=== PATIENT | female | born 1955 | race Hispanic/Latino ===

== ENCOUNTER 2017-06-28 16:58 | Emergency (ER) | payer OTHER, SELFPAY ==
[2017-06-28 17:34] LABS: BASOPHILS % (AUTO) 0.8 % (0.0-5.0); EOSINOPHILS % (AUTO) 1.8 % (0.0-8.0); HEMATOCRIT 43.3 % (36-48); LYMPHOCYTES % (AUTO) 29.8 % (21.0-51.0); MEAN CORPUSCULAR HEMOGLOBIN 31.7 pg (27.0-33.0); MEAN CORPUSCULAR VOLUME 90.7 fL (79-99); MONOCYTES % (AUTO) 7.6 % (3.0-13.0); NUCLEATED RED BLOOD CELLS 0.1 % (0.0-0.19); PLATELET COUNT (AUTO) 309 K/uL (130-400); RED BLOOD CELL COUNT(AUTO) 4.77 MIL/uL (4.00-5.50); RED CELL DISTRIBUTION WIDTH 13.2 % (11.0-15.5); WHITE BLOOD COUNT (AUTO) 7.7 K/uL (4.8-10.8)
[2017-06-28 17:52] LABS: INR 0.97 (0.85-1.15); PARTIAL THROMBOPLASTIN TIME 25.9 SEC (26.3-35.5); PROTHROMBIN TIME 10.2 SEC (9.6-11.6)
[2017-06-28 18:01] LABS: CREATININE 0.6 mg/dL (0.5-1.5); POTASSIUM 4.5 mmol/L (3.5-5.1)
[2017-06-28 18:19] LABS: ALBUMIN 3.9 g/dL (3.5-5.0); BILIRUBIN,TOTAL 0.5 mg/dL (0.2-1.0); CREATINE KINASE MB 0.6 ng/mL (0.5-3.6); TOTAL PROTEIN, SERUM 7.4 g/dL (6.0-8.3)
[2017-06-28 18:49] LABS: APPEARANCE,URINE Clear (CLEAR); BILIRUBIN,URINE Negative (NEGATIVE); COLOR,URINE Yellow (YELLOW); GLUCOSE, URINE (UA) Negative (NEGATIVE); KETONES,URINE Negative (NEGATIVE); LEUKOCYTE ESTERASE ,URINE Moderate (NEGATIVE); NITRATE,URINE Negative (NEGATIVE); OCCULT BLOOD,URINE Negative (NEGATIVE); PROTEIN,URINE Negative (NEGATIVE); UROBILINOGEN,URINE 0.2 mg/dL (0.2-1.0)
[2017-06-28 18:55] LABS: AMPHET/METH SCREEN,URINE NEGATIVE (NEGATIVE); BARBITURATE SCREEN, URINE NEGATIVE (NEGATIVE); BENZODIAZEPINES SCREEN,URINE NEGATIVE (NEGATIVE); CANNABINOID SCREEN,URINE NEGATIVE (NEGATIVE); COCAINE SCREEN,URINE NEGATIVE (NEGATIVE); OPIATE SCREEN,URINE NEGATIVE (NEGATIVE); PHENCYCLIDINE SCREEN,URINE NEGATIVE (NEGATIVE)
[2017-06-28 18:57] LABS: RBC,URINE 0-1 /HPF (0-1)
[2017-06-28 18:58] LABS: SQUAMOUS EPITHELIAL CELL,UR Few /LPF (0-2)
[2017-06-28 18:59] LABS: BACTERIA,URINE Rare /HPF (None Seen); YEAST,URINE BUDDING Few /HPF (None Seen)
== END 2017-06-28 19:17 | disposition home or self-care (01) ==
LOC: EDH 16:58
DX: I10 Essential (primary) hypertension (principal); E11.65 Type 2 diabetes mellitus with hyperglycemia; H66.93 Otitis media, unspecified, bilateral; K59.00 Constipation, unspecified; R79.1 Abnormal coagulation profile; Z79.82 Long term (current) use of aspirin; Z79.899 Other long term (current) drug therapy
CPT/HCPCS: 36415; 71045; 80053; 80305; 81001; 82553; 84484; 85025; 85610; 85730; 93005

== ENCOUNTER 2018-07-10 23:53 | Emergency (ER) | payer OTHER ==
[2018-07-11] MEDS ORDERED: ACETAMINOPHEN 325 MG TAB ONE (00:12)
[2018-07-11 00:47] LABS: BILIRUBIN,URINE Negative (NEGATIVE); COLOR,URINE Yellow (YELLOW); GLUCOSE, URINE (UA) Negative (NEGATIVE); KETONES,URINE Negative (NEGATIVE); LEUKOCYTE ESTERASE ,URINE Large (NEGATIVE); NITRATE,URINE Positive (NEGATIVE); OCCULT BLOOD,URINE Moderate (NEGATIVE); PH,URINE 5.5 (5.0-8.0); PROTEIN,URINE Negative (NEGATIVE)
[2018-07-11 00:48] LABS: APPEARANCE,URINE CLEAR (CLEAR)
[2018-07-11 00:53] LABS: BACTERIA,URINE Many /HPF (None Seen); MUCUS,URINE Few LPF (None Seen); SQUAMOUS EPITHELIAL CELL,UR Rare /HPF (0-2)
[2018-07-11 01:08] LABS: BASOPHILS % (AUTO) 0.4 % (0.0-5.0); EOSINOPHILS % (AUTO) 0.8 % (0.0-8.0); HEMATOCRIT 39.4 % (36-48); LYMPHOCYTES % (AUTO) 5.6 % (21.0-51.0); MEAN CORPUSCULAR HEMOGLOBIN 31.6 pg (27.0-33.0); MEAN CORPUSCULAR HGB CONC 34.6 g/dL (32.0-36.0); MEAN CORPUSCULAR VOLUME 91.3 fL (79-99); MONOCYTES % (AUTO) 7.9 % (3.0-13.0); NEUTROPHILS % (AUTO) 85.3 % (40.0-77.0); PLATELET COUNT (AUTO) 280 K/uL (130-400); RED BLOOD CELL COUNT(AUTO) 4.31 MIL/uL (4.00-5.50); RED CELL DISTRIBUTION WIDTH 12.7 % (11.0-15.5); WHITE BLOOD COUNT (AUTO) 11.1 K/uL (4.8-10.8)
[2018-07-11 01:17] LABS: CREATININE 0.7 mg/dL (0.5-1.5); POTASSIUM 3.1 mmol/L (3.5-5.1)
[2018-07-11] MEDS ORDERED: CEFTRIAXONE SODIUM 1 GM ONE (01:17)
[2018-07-11 01:22] LABS: ALBUMIN 3.4 g/dL (3.5-5.0); BILIRUBIN,TOTAL 0.5 mg/dL (0.2-1.0); TOTAL PROTEIN, SERUM 7.3 g/dL (6.0-8.3)
[2018-07-11] MEDS ORDERED: ONDANSETRON HCL 4 MG/2 ML VIAL ONE (01:23)
[2018-07-11] MEDS ORDERED: POTASSIUM CHLORIDE 20 MEQ ERTAB PO ONE (02:06)
== END 2018-07-11 02:56 | disposition home or self-care (01) ==
LOC: EDH 23:53
DX: N30.00 Acute cystitis without hematuria (principal); M79.10 Myalgia, unspecified site; R50.81 Fever presenting with conditions classified elsewhere; E11.9 Type 2 diabetes mellitus without complications; I10 Essential (primary) hypertension; E78.5 Hyperlipidemia, unspecified; Z86.73 Personal history of transient ischemic attack (TIA), and cerebral infarction without residual deficits
CPT/HCPCS: 36415; 71046; 80053; 81001; 82550; 84484; 85025; 87804 ×2; 93005; 96374; 96375; 99284; A4218; J0696; J2405

== ENCOUNTER → 2020-11-25 | Outpatient (CLI) | payer OTHER | END | disposition home or self-care (01) | LOC: CANPRECLI → RAH 08:31 | PROVIDERS: ATTEND Internal Medicine | DX: I08.1 Rheumatic disorders of both mitral and tricuspid valves (principal); R55 Syncope and collapse; I10 Essential (primary) hypertension; E11.9 Type 2 diabetes mellitus without complications; E78.5 Hyperlipidemia, unspecified; E66.9 Obesity, unspecified | CPT/HCPCS: 93306; 93356 ==

== ENCOUNTER 2022-12-13 01:40 | Inpatient (IN) | payer OTHER ==
[~2022-12-13] VITALS: Ht 162.6 cm; Wt 90.7 kg
[2022-12-13 04:14] LABS: BASOPHILS # (AUTO) 0.11 K/uL (0.00-0.20); BASOPHILS % (AUTO) 0.8 % (0.0-5.0); EOSINOPHILS # (AUTO) 0.13 K/uL (0.00-0.70); HEMATOCRIT 39.7 % (36-48); IMMATURE GRANULOCYTE ABSOLUTE 0.07 K/uL (0-1); LYMPHOCYTES # (AUTO) 2.2 K/uL (1.0-4.8); LYMPHOCYTES % (AUTO) 16.4 % (21.0-51.0); MEAN CORPUSCULAR HEMOGLOBIN 30.2 pg (27.0-33.0); MEAN CORPUSCULAR VOLUME 88.8 fL (79-99); MONOCYTES # (AUTO) 0.9 K/uL (0.1-1.0); MONOCYTES % (AUTO) 7.1 % (3.0-13.0); NEUTROPHILS # (AUTO) 9.8 K/uL (1.8-7.7); NEUTROPHILS % (AUTO) 74.2 % (40.0-77.0); PLATELET COUNT (AUTO) 455 K/uL (130-400); RED BLOOD CELL COUNT(AUTO) 4.47 MIL/uL (4.00-5.50); RED CELL DISTRIBUTION WIDTH 12.5 % (11.0-15.5); WHITE BLOOD COUNT (AUTO) 13.2 K/uL (4.8-10.8)
[2022-12-13 04:29] LABS: CREATININE 0.9 mg/dL (0.5-1.5); POTASSIUM 3.2 mmol/L (3.5-5.1)
[2022-12-13 04:40] LABS: ALBUMIN 3.4 g/dL (3.5-5.0); BILIRUBIN,TOTAL 0.3 mg/dL (0.2-1.0); TOTAL PROTEIN, SERUM 7.3 g/dL (6.0-8.3)
[2022-12-13 04:55] LABS: APPEARANCE,URINE TURBID (CLEAR); BILIRUBIN,URINE NEGATIVE (NEGATIVE); COLOR,URINE RED (YELLOW); GLUCOSE, URINE (UA) 100 mg/dL (NEGATIVE); KETONES,URINE 5 mg/dL (NEGATIVE); LEUKOCYTE ESTERASE ,URINE TRACE Leu/uL (NEGATIVE); NITRATE,URINE POSITIVE (NEGATIVE); OCCULT BLOOD,URINE LARGE (NEGATIVE); PROTEIN,URINE >=300 mg/dL (NEGATIVE)
[2022-12-13 04:56] LABS: ADD UA MICROSCOPIC YES; RBC,URINE TNTC /HPF (0-1)
[2022-12-13 04:57] LABS: BACTERIA,URINE Few /HPF (None Seen)
[2022-12-13] MEDS: 0.9% NACL 500ML IV.SOLN 500 ML IV SCH ×3 (05:20→09:23)
[2022-12-13] MEDS ORDERED: IOHEXOL 350 MG/ML 100ML INFUS..BTL IV ONE (05:42)
[2022-12-13] MEDS ORDERED: KCL 20 MEQ ERTAB PO ONE (07:00)
[2022-12-13] MEDS: CEFTRIAXONE 1G VIAL IVPB SCH (07:07)
[2022-12-13] MEDS ORDERED: FISH1CAP27 PO (07:26)
[2022-12-13] MEDS ORDERED: METF-444 PO (07:26)
[2022-12-13] MEDS ORDERED: LOVA40TA2 PO (07:26)
[2022-12-13] MEDS ORDERED: HYDR25TA PO (07:26)
[2022-12-13] MEDS ORDERED: CLOP75TA32 PO (07:26)
[2022-12-13] MEDS ORDERED: AMLO-258 PO (07:26)
[2022-12-13] MEDS ORDERED: OLME20TA22 PO (07:26)
[2022-12-13] MEDS: HYDROCHLOROTHIAZIDE 25 MG TABLET PO SCH (08:09)
[2022-12-13] MEDS: METFORMIN HCL 500 MG TABLET PO SCH ×2 (08:44→21:00)
[2022-12-13] MEDS ORDERED: NON-FORMULARY MEDICATION 1 EACH (Amlodipine Besylate 10 MG) PO SCH (09:00)
[2022-12-13] MEDS: AMLODIPINE 5 MG TAB PO SCH (09:00)
[2022-12-13] MEDS: LOSARTAN 100 MG TABLET PO SCH (09:00)
[2022-12-13] MEDS ORDERED: CLOPIDOGREL 75MG TAB PO SCH (09:00)
[2022-12-13] MEDS ORDERED: NON-FORMULARY MEDICATION 1 EACH (Olmesartan Medoxomil 20 MG) PO SCH (09:00)
[2022-12-13] MEDS ORDERED: FISH OIL 1000 MG/CAP PO SCH (17:00)
[2022-12-13] MEDS ORDERED: NON-FORMULARY MEDICATION 1 EACH (Lovastatin 40 MG) PO SCH (17:00)
[2022-12-13 19:40] VITALS: PULSE 87; RESP 19; O2SAT 96
[2022-12-13] MEDS ORDERED: CHOL200013 PO (19:51)
[2022-12-13] MEDS ORDERED: GLUCAGON 1MG KIT 1 MG ML IM PRN (20:00)
[2022-12-13] MEDS: ACETAMINOPHEN 325 MG TAB PO PRN (20:23)
[2022-12-13] MEDS: ATORVASTATIN 10 MG TABLET PO SCH (21:21)
[2022-12-13 22:40] VITALS: BP 120/62; PULSE 85; RESP 18
[2022-12-13] MEDS ORDERED: HYALURONIC ACID PO (23:29)
[2022-12-14] VITALS (7 sets, daily range): BP systolic 97–127; BP diastolic 43–65; PULSE 82–93; RESP 18–20; O2SAT 96–98
[2022-12-14] MEDS: ACETAMINOPHEN 325 MG TAB PO PRN (03:10)
[2022-12-14 05:22] LABS: INR 0.94 (0.85-1.15); PROTHROMBIN TIME 10.9 SEC (9.6-11.6)
[2022-12-14 05:23] LABS: PARTIAL THROMBOPLASTIN TIME 24.7 SEC (26.3-35.5)
[2022-12-14 05:24] LABS: BASOPHILS % (AUTO) 0.8 % (0.0-5.0); EOSINOPHILS # (AUTO) 0.08 K/uL (0.00-0.70); EOSINOPHILS % (AUTO) 0.6 % (0.0-8.0); HEMATOCRIT 26.3 % (36-48); IMMATURE GRANULOCYTE ABSOLUTE 0.11 K/uL (0-1); LYMPHOCYTES # (AUTO) 3.1 K/uL (1.0-4.8); MEAN CORPUSCULAR HEMOGLOBIN 30.1 pg (27.0-33.0); MEAN CORPUSCULAR HGB CONC 33.5 g/dL (32.0-36.0); MEAN CORPUSCULAR VOLUME 90.1 fL (79-99); MONOCYTES % (AUTO) 7.1 % (3.0-13.0); NEUTROPHILS % (AUTO) 67.7 % (40.0-77.0); PLATELET COUNT (AUTO) 450 K/uL (130-400); RED BLOOD CELL COUNT(AUTO) 2.92 MIL/uL (4.00-5.50); RED CELL DISTRIBUTION WIDTH 12.8 % (11.0-15.5); WHITE BLOOD COUNT (AUTO) 13.3 K/uL (4.8-10.8)
[2022-12-14 05:43] LABS: ALBUMIN 2.8 g/dL (3.5-5.0); BILIRUBIN,TOTAL 0.3 mg/dL (0.2-1.0); POTASSIUM 3.4 mmol/L (3.5-5.1); TOTAL PROTEIN, SERUM 5.8 g/dL (6.0-8.3)
[2022-12-14] MEDS: CEFTRIAXONE 1G VIAL IVPB SCH (07:16)
[2022-12-14] MEDS: AMLODIPINE 5 MG TAB PO SCH (09:00)
[2022-12-14] MEDS: Cholecalciferol (Vitamin D3) 50 MCG PO SCH (09:00)
[2022-12-14] MEDS: LOSARTAN 100 MG TABLET PO SCH (09:00)
[2022-12-14] MEDS: METFORMIN HCL 500 MG TABLET PO SCH ×2 (09:39→21:04)
[2022-12-14] MEDS: HYDROCHLOROTHIAZIDE 25 MG TABLET PO SCH (09:40)
[2022-12-14] MEDS: FISH OIL 1000 MG/CAP PO SCH (17:02)
[2022-12-14] MEDS: ATORVASTATIN 10 MG TABLET PO SCH (21:04)
[2022-12-15] VITALS (20 sets, daily range): BP systolic 116–159; BP diastolic 33–78; PULSE 66–92; RESP 15–20; O2SAT 97–98
[2022-12-15 05:10] LABS: BASOPHILS # (AUTO) 0.11 K/uL (0.00-0.20); BASOPHILS % (AUTO) 0.9 % (0.0-5.0); EOSINOPHILS # (AUTO) 0.09 K/uL (0.00-0.70); EOSINOPHILS % (AUTO) 0.7 % (0.0-8.0); IMMATURE GRANULOCYTE ABSOLUTE 0.15 K/uL (0-1); LYMPHOCYTES # (AUTO) 3.3 K/uL (1.0-4.8); LYMPHOCYTES % (AUTO) 25.9 % (21.0-51.0); MEAN CORPUSCULAR HEMOGLOBIN 30.6 pg (27.0-33.0); MONOCYTES # (AUTO) 0.9 K/uL (0.1-1.0); NEUTROPHILS # (AUTO) 8.2 K/uL (1.8-7.7); NEUTROPHILS % (AUTO) 64.3 % (40.0-77.0); PLATELET COUNT (AUTO) 337 K/uL (130-400); RED BLOOD CELL COUNT(AUTO) 2.19 MIL/uL (4.00-5.50); RED CELL DISTRIBUTION WIDTH 12.7 % (11.0-15.5); WHITE BLOOD COUNT (AUTO) 12.8 K/uL (4.8-10.8)
[2022-12-15 05:18] LABS: CREATININE 0.8 mg/dL (0.5-1.5); POTASSIUM 3.5 mmol/L (3.5-5.1)
[2022-12-15 05:32] LABS: HEMATOCRIT 19.7 % (36-48)
[2022-12-15] MEDS: CEFTRIAXONE 1G VIAL IVPB SCH (06:11)
[2022-12-15] MEDS: METFORMIN HCL 500 MG TABLET PO SCH ×2 (09:00→22:55)
[2022-12-15] MEDS: LOSARTAN 100 MG TABLET PO SCH (09:00)
[2022-12-15] MEDS: HYDROCHLOROTHIAZIDE 25 MG TABLET PO SCH (09:00)
[2022-12-15] MEDS: AMLODIPINE 5 MG TAB PO SCH (09:00)
[2022-12-15] MEDS: Cholecalciferol (Vitamin D3) 50 MCG PO SCH (09:00)
[2022-12-15 15:35] LABS: HEMATOCRIT 24.9 % (36-48)
[2022-12-15] MEDS: FISH OIL 1000 MG/CAP PO SCH (17:00)
[2022-12-15] MEDS ORDERED: IOHEXOL-350 75 ML VIAL IV ONE (19:36)
[2022-12-15] MEDS ORDERED: KETAMINE 50MG/ML SYRINGE 50 MG/ML DISP.SYRIN ONE (19:55)
[2022-12-15] MEDS ORDERED: LIDOCAINE PF 100MG/5ML (2%) SYRINGE 5ML ONE (19:57)
[2022-12-15] MEDS ORDERED: ROCURONIUM 10MG/1ML SYR 10 MG/ML ML ONE (19:58)
[2022-12-15] MEDS ORDERED: PROPOFOL 10 MG/ML 20ML VIAL IV ONE (19:58)
[2022-12-15] MEDS ORDERED: FENTANYL CITRATE PF 50 MCG/1 ML 2ML VIAL ONE (20:00)
[2022-12-15] MEDS ORDERED: ALBUMIN (HUMAN) 5% 250 ML IV ONE (20:29)
[2022-12-15] MEDS ORDERED: FUROSEMIDE 40MG VIAL ONE (20:36)
[2022-12-15] MEDS ORDERED: IOHEXOL-350 50ML VIAL IV ONE ×2 (20:48→21:00)
[2022-12-15] MEDS ORDERED: AMINOCAPROIC ACID 5,000MG VIAL ONE ×4 (21:04→22:17)
[2022-12-15] MEDS ORDERED: GLYCOPYRROLATE 1 MG/5 ML SYRINGE ONE (21:11)
[2022-12-15] MEDS ORDERED: NEOSTIGMINE 5MG/5ML SYR IV ONE (21:11)
[2022-12-15 22:16] LABS: BASOPHILS # (AUTO) 0.09 K/uL (0.00-0.20); BASOPHILS % (AUTO) 0.7 % (0.0-5.0); EOSINOPHILS # (AUTO) 0.05 K/uL (0.00-0.70); EOSINOPHILS % (AUTO) 0.4 % (0.0-8.0); HEMATOCRIT 35.1 % (36-48); IMMATURE GRANULOCYTE ABSOLUTE 0.28 K/uL (0-1); LYMPHOCYTES # (AUTO) 2.6 K/uL (1.0-4.8); LYMPHOCYTES % (AUTO) 21.6 % (21.0-51.0); MEAN CORPUSCULAR HEMOGLOBIN 30.9 pg (27.0-33.0); MEAN CORPUSCULAR HGB CONC 33.9 g/dL (32.0-36.0); MEAN CORPUSCULAR VOLUME 91.2 fL (79-99); MONOCYTES # (AUTO) 0.9 K/uL (0.1-1.0); MONOCYTES % (AUTO) 7.7 % (3.0-13.0); NEUTROPHILS # (AUTO) 8.2 K/uL (1.8-7.7); NEUTROPHILS % (AUTO) 67.3 % (40.0-77.0); NUCLEATED RED BLOOD CELLS 0.7 % (0.0-0.19); PLATELET COUNT (AUTO) 258 K/uL (130-400); RED BLOOD CELL COUNT(AUTO) 3.85 MIL/uL (4.00-5.50); RED CELL DISTRIBUTION WIDTH 13.6 % (11.0-15.5); WHITE BLOOD COUNT (AUTO) 12.2 K/uL (4.8-10.8)
[2022-12-15 22:30] LABS: CREATININE 0.7 mg/dL (0.5-1.5); POTASSIUM 3.5 mmol/L (3.5-5.1)
[2022-12-15 22:34] LABS: ALBUMIN 3.2 g/dL (3.5-5.0); BILIRUBIN,TOTAL 0.6 mg/dL (0.2-1.0); TOTAL PROTEIN, SERUM 6.1 g/dL (6.0-8.3)
[2022-12-15] MEDS: ATORVASTATIN 10 MG TABLET PO SCH (22:55)
[2022-12-15] MEDS ORDERED: LACTATED RINGERS 1000ML 1,000 ML IV SCH (23:00)
[2022-12-15] MEDS ORDERED: PHARMACY COMMUNICATION MISC SCH (23:00)
[2022-12-15] MEDS ORDERED: MEPERIDINE-PF 75 MG/ML SYG IVP PRN (23:00)
[2022-12-15] MEDS ORDERED: ONDANSETRON 4MG INJ IVP PRN (23:00)
[2022-12-15] MEDS ORDERED: ACETAMINOPHEN WITH CODEINE 1 TAB TAB PO PRN (23:00)
[2022-12-15] MEDS ORDERED: LACTATED RINGERS IV SCH (23:30)
[2022-12-15] MEDS ORDERED: AMINOCAPROIC ACID IV SCH (23:30)
[2022-12-16 04:00] VITALS: BP 150/71; PULSE 73; RESP 18
[2022-12-16] MEDS: CEFTRIAXONE 1G VIAL IVPB SCH (04:39)
[2022-12-16 04:48] LABS: BASOPHILS # (AUTO) 0.07 K/uL (0.00-0.20); BASOPHILS % (AUTO) 0.6 % (0.0-5.0); EOSINOPHILS # (AUTO) 0.02 K/uL (0.00-0.70); EOSINOPHILS % (AUTO) 0.2 % (0.0-8.0); HEMATOCRIT 31.2 % (36-48); IMMATURE GRANULOCYTE ABSOLUTE 0.15 K/uL (0-1); LYMPHOCYTES # (AUTO) 2.2 K/uL (1.0-4.8); LYMPHOCYTES % (AUTO) 17.4 % (21.0-51.0); MEAN CORPUSCULAR HEMOGLOBIN 30.1 pg (27.0-33.0); MEAN CORPUSCULAR HGB CONC 34.3 g/dL (32.0-36.0); MEAN CORPUSCULAR VOLUME 87.9 fL (79-99); MONOCYTES # (AUTO) 0.9 K/uL (0.1-1.0); MONOCYTES % (AUTO) 6.8 % (3.0-13.0); NEUTROPHILS # (AUTO) 9.2 K/uL (1.8-7.7); NEUTROPHILS % (AUTO) 73.8 % (40.0-77.0); NUCLEATED RED BLOOD CELLS 0.5 % (0.0-0.19); PLATELET COUNT (AUTO) 256 K/uL (130-400); RED BLOOD CELL COUNT(AUTO) 3.55 MIL/uL (4.00-5.50); RED CELL DISTRIBUTION WIDTH 13.2 % (11.0-15.5); WHITE BLOOD COUNT (AUTO) 12.4 K/uL (4.8-10.8)
[2022-12-16 05:08] LABS: ALBUMIN 2.8 g/dL (3.5-5.0); BILIRUBIN,TOTAL 0.6 mg/dL (0.2-1.0); CREATININE 0.7 mg/dL (0.5-1.5); POTASSIUM 3.1 mmol/L (3.5-5.1); TOTAL PROTEIN, SERUM 5.3 g/dL (6.0-8.3)
[2022-12-16 05:32] LABS: INR 0.95 (0.85-1.15); PROTHROMBIN TIME 11.1 SEC (9.6-11.6)
[2022-12-16] MEDS: KCL 20 MEQ ERTAB PO PRN (06:56)
[2022-12-16] MEDS ORDERED: MAGNESIUM 2GM PREMIX 50ML 50 ML IV PRN (07:00)
[2022-12-16] MEDS ORDERED: POTASSIUM CHLORIDE 10% ELIXIR 20 MEQ/15 ML UDCUP PO PRN (07:00)
[2022-12-16] MEDS ORDERED: POTASSIUM CHLORIDE 20MEQ/100ML 100 ML IV PRN (07:00)
[2022-12-16] MEDS ORDERED: IOHEXOL-350 75 ML VIAL IV ONE (07:49)
[2022-12-16 07:51] LABS: SARS-CoV-2, RNA, NAAT NEGATIVE SARS CoV-2 (NEGATIVE)
[2022-12-16 08:00] VITALS: BP 129/57; PULSE 59; RESP 17
[2022-12-16] MEDS: LOSARTAN 100 MG TABLET PO SCH (08:26)
[2022-12-16] MEDS: AMLODIPINE 5 MG TAB PO SCH (08:26)
[2022-12-16] MEDS: HYDROCHLOROTHIAZIDE 25 MG TABLET PO SCH (08:26)
[2022-12-16] MEDS: Cholecalciferol (Vitamin D3) 50 MCG PO SCH (09:00)
[2022-12-16] MEDS: METFORMIN HCL 500 MG TABLET PO SCH ×2 (09:10→20:45)
[2022-12-16] MEDS: OXYBUTYNIN 5 MG TAB.SR.24H PO SCH ×2 (09:10→20:48)
[2022-12-16 11:00] VITALS: BP 104/51; PULSE 53; RESP 16
[2022-12-16 16:00] VITALS: BP 106/46; PULSE 66; RESP 17
[2022-12-16] MEDS: FISH OIL 1000 MG/CAP PO SCH (17:22)
[2022-12-16 20:41] VITALS: BP 134/69; PULSE 68; RESP 18
[2022-12-16] MEDS: AMINOCAPROIC ACID 500MG TAB PO SCH ×2 (20:44→20:54)
[2022-12-16] MEDS: LACTATED RINGERS 1000ML 1,000 ML IV SCH (20:44)
[2022-12-16] MEDS: ATORVASTATIN 10 MG TABLET PO SCH (20:45)
[2022-12-16] MEDS: FERROUS SULFATE 325 MG TABLET.DR PO SCH (20:45)
[2022-12-16 23:46] VITALS: BP 143/64; PULSE 58; RESP 21
[2022-12-17] VITALS (7 sets, daily range): BP systolic 103–147; BP diastolic 46–64; PULSE 51–66; RESP 17–20; O2SAT 97
[2022-12-17 04:15] LABS: BASOPHILS # (AUTO) 0.06 K/uL (0.00-0.20); BASOPHILS % (AUTO) 0.8 % (0.0-5.0); EOSINOPHILS # (AUTO) 0.13 K/uL (0.00-0.70); EOSINOPHILS % (AUTO) 1.6 % (0.0-8.0); HEMATOCRIT 30.7 % (36-48); IMMATURE GRANULOCYTE ABSOLUTE 0.07 K/uL (0-1); LYMPHOCYTES # (AUTO) 1.9 K/uL (1.0-4.8); LYMPHOCYTES % (AUTO) 23.6 % (21.0-51.0); MEAN CORPUSCULAR HEMOGLOBIN 30.2 pg (27.0-33.0); MEAN CORPUSCULAR HGB CONC 33.9 g/dL (32.0-36.0); MEAN CORPUSCULAR VOLUME 89.2 fL (79-99); MONOCYTES # (AUTO) 0.6 K/uL (0.1-1.0); MONOCYTES % (AUTO) 7.3 % (3.0-13.0); NEUTROPHILS # (AUTO) 5.3 K/uL (1.8-7.7); NEUTROPHILS % (AUTO) 65.8 % (40.0-77.0); NUCLEATED RED BLOOD CELLS 0.4 % (0.0-0.19); PLATELET COUNT (AUTO) 254 K/uL (130-400); RED BLOOD CELL COUNT(AUTO) 3.44 MIL/uL (4.00-5.50); RED CELL DISTRIBUTION WIDTH 13.6 % (11.0-15.5)
[2022-12-17 04:44] LABS: ALBUMIN 2.6 g/dL (3.5-5.0); BILIRUBIN,TOTAL 0.4 mg/dL (0.2-1.0); CREATININE 0.6 mg/dL (0.5-1.5); POTASSIUM 3.3 mmol/L (3.5-5.1); TOTAL PROTEIN, SERUM 5.3 g/dL (6.0-8.3)
[2022-12-17] MEDS: LACTATED RINGERS 1000ML 1,000 ML IV SCH ×2 (05:00→14:32)
[2022-12-17] MEDS: CEFTRIAXONE 1G VIAL IVPB SCH (06:16)
[2022-12-17] MEDS: HYDROCHLOROTHIAZIDE 25 MG TABLET PO SCH (09:00)
[2022-12-17] MEDS: Cholecalciferol (Vitamin D3) 50 MCG PO SCH (09:00)
[2022-12-17] MEDS: AMLODIPINE 5 MG TAB PO SCH (09:00)
[2022-12-17] MEDS: LOSARTAN 100 MG TABLET PO SCH (09:00)
[2022-12-17] MEDS: OXYBUTYNIN 5 MG TAB.SR.24H PO SCH ×2 (09:43→21:53)
[2022-12-17] MEDS: FERROUS SULFATE 325 MG TABLET.DR PO SCH ×3 (09:43→21:52)
[2022-12-17] MEDS: FOLIC ACID 1 MG TABLET PO SCH (09:43)
[2022-12-17] MEDS: KCL 20 MEQ ERTAB PO PRN ×3 (09:43→14:29)
[2022-12-17] MEDS: AMINOCAPROIC ACID 500MG TAB PO SCH ×4 (09:43→21:52)
[2022-12-17] MEDS: METFORMIN HCL 500 MG TABLET PO SCH ×2 (09:49→21:52)
[2022-12-17] MEDS: FISH OIL 1000 MG/CAP PO SCH (17:51)
[2022-12-17] MEDS: ATORVASTATIN 10 MG TABLET PO SCH (21:52)
[2022-12-18] MEDS: LACTATED RINGERS 1000ML 1,000 ML IV SCH ×2 (01:00→11:00)
[2022-12-18 03:53] VITALS: BP 142/76; PULSE 68; RESP 18
[2022-12-18 04:14] LABS: BASOPHILS # (AUTO) 0.03 K/uL (0.00-0.20); BASOPHILS % (AUTO) 0.4 % (0.0-5.0); EOSINOPHILS # (AUTO) 0.14 K/uL (0.00-0.70); EOSINOPHILS % (AUTO) 2.1 % (0.0-8.0); HEMATOCRIT 30.2 % (36-48); IMMATURE GRANULOCYTE ABSOLUTE 0.03 K/uL (0-1); LYMPHOCYTES # (AUTO) 1.9 K/uL (1.0-4.8); MEAN CORPUSCULAR HEMOGLOBIN 30.8 pg (27.0-33.0); MEAN CORPUSCULAR HGB CONC 33.8 g/dL (32.0-36.0); MEAN CORPUSCULAR VOLUME 91.2 fL (79-99); MONOCYTES # (AUTO) 0.7 K/uL (0.1-1.0); MONOCYTES % (AUTO) 10.2 % (3.0-13.0); NEUTROPHILS # (AUTO) 3.9 K/uL (1.8-7.7); NEUTROPHILS % (AUTO) 58.9 % (40.0-77.0); PLATELET COUNT (AUTO) 276 K/uL (130-400); RED BLOOD CELL COUNT(AUTO) 3.31 MIL/uL (4.00-5.50); RED CELL DISTRIBUTION WIDTH 13.7 % (11.0-15.5); WHITE BLOOD COUNT (AUTO) 6.7 K/uL (4.8-10.8)
[2022-12-18 04:56] LABS: ALBUMIN 2.6 g/dL (3.5-5.0); BILIRUBIN,TOTAL 0.2 mg/dL (0.2-1.0); CREATININE 0.7 mg/dL (0.5-1.5); MAGNESIUM 1.9 mg/dL (1.80-2.40); POTASSIUM 3.9 mmol/L (3.5-5.1); TOTAL PROTEIN, SERUM 5.2 g/dL (6.0-8.3)
[2022-12-18] MEDS: CEFTRIAXONE 1G VIAL IVPB SCH (06:07)
[2022-12-18 08:00] VITALS: BP 137/66; PULSE 60; RESP 16; O2SAT 97
[2022-12-18] MEDS: Cholecalciferol (Vitamin D3) 50 MCG PO SCH (09:00)
[2022-12-18] MEDS: FOLIC ACID 1 MG TABLET PO SCH (09:13)
[2022-12-18] MEDS: METFORMIN HCL 500 MG TABLET PO SCH ×2 (09:14→21:08)
[2022-12-18] MEDS: POLYETHYLENE GLYCOL 3350 17 GM POWD.PACK PO SCH (09:14)
[2022-12-18] MEDS: AMLODIPINE 5 MG TAB PO SCH (09:14)
[2022-12-18] MEDS: HYDROCHLOROTHIAZIDE 25 MG TABLET PO SCH (09:14)
[2022-12-18] MEDS: LOSARTAN 100 MG TABLET PO SCH (09:14)
[2022-12-18] MEDS: AMINOCAPROIC ACID 500MG TAB PO SCH ×4 (09:14→21:08)
[2022-12-18] MEDS: FERROUS SULFATE 325 MG TABLET.DR PO SCH ×3 (09:14→21:08)
[2022-12-18] MEDS: OXYBUTYNIN 5 MG TAB.SR.24H PO SCH (10:08)
[2022-12-18 12:00] VITALS: BP 156/64; PULSE 60; RESP 18
[2022-12-18 16:00] VITALS: BP 128/83; PULSE 69; RESP 18
[2022-12-18] MEDS: FISH OIL 1000 MG/CAP PO SCH (17:06)
[2022-12-18] MEDS ORDERED: GUAIFENESIN SUGAR-FREE 100 MG/5 ML UDCUP PO PRN (17:30)
[2022-12-18 20:00] VITALS: O2SAT 97
[2022-12-18 20:26] VITALS: BP 161/76; PULSE 69; RESP 18
[2022-12-18] MEDS: ATORVASTATIN 10 MG TABLET PO SCH (21:08)
[2022-12-19 08:00] VITALS: BP 135/57; PULSE 60; RESP 18
[2022-12-19] MEDS: Cholecalciferol (Vitamin D3) 50 MCG PO SCH (09:00)
[2022-12-19] MEDS: AMINOCAPROIC ACID 500MG TAB PO SCH ×2 (10:32→14:16)
[2022-12-19] MEDS: POLYETHYLENE GLYCOL 3350 17 GM POWD.PACK PO SCH (10:33)
[2022-12-19] MEDS: FERROUS SULFATE 325 MG TABLET.DR PO SCH ×2 (10:33→14:15)
[2022-12-19] MEDS: AMLODIPINE 5 MG TAB PO SCH (10:33)
[2022-12-19] MEDS: HYDROCHLOROTHIAZIDE 25 MG TABLET PO SCH (10:33)
[2022-12-19] MEDS: LOSARTAN 100 MG TABLET PO SCH (10:33)
[2022-12-19] MEDS: FOLIC ACID 1 MG TABLET PO SCH (10:33)
[2022-12-19] MEDS: METFORMIN HCL 500 MG TABLET PO SCH (10:33)
[2022-12-19 12:00] VITALS: BP 139/55; PULSE 51; RESP 18
[2022-12-19 16:00] VITALS: BP 136/61; PULSE 54; RESP 18
== END 2022-12-19 17:40 | disposition home or self-care (01) | DRG 669 ==
LOC: EDH 01:40 → EDHIP 06:32 → 4BH 22:40
PROVIDERS: ADMIT Internal Medicine; ATTEND Internal Medicine
PROC: BT141ZZ Fluoroscopy of Kidneys, Ureters and Bladder using Low Osmolar Contrast (ICD-10-PCS; 2022-12-15)
PROC: 30233N1 Transfusion of Nonautologous Red Blood Cells into Peripheral Vein, Percutaneous Approach (ICD-10-PCS; 2022-12-15)
PROC: 0TBB8ZX Excision of Bladder, Via Natural or Artificial Opening Endoscopic, Diagnostic (ICD-10-PCS; principal; 2022-12-15 19:58)
DX: N32.89 Other specified disorders of bladder (principal); D62 Acute posthemorrhagic anemia; N30.91 Cystitis, unspecified with hematuria; R31.0 Gross hematuria; E87.6 Hypokalemia; E11.9 Type 2 diabetes mellitus without complications; D64.9 Anemia, unspecified; Z20.822 Contact with and (suspected) exposure to COVID-19; I10 Essential (primary) hypertension; E78.00 Pure hypercholesterolemia, unspecified; M06.9 Rheumatoid arthritis, unspecified
CPT/HCPCS: 36415; 36430; 74177; 74178; 74420; 74430; 80048; 80053; 81001; 82948; 83735; 85014; 85018; 85025; 85610; 85730; 86850; 86900; 86901; 86923; 87088; 87635; 94664; G0378; J0696; J1940; J2001; J2175; J2405; J2704; J2710; J3010; J3475; J3490; J7040; P9016; P9045; Q9958; Q9967

== ENCOUNTER → 2024-06-13 | Outpatient (CLI) | payer OTHER ==
[~2024-06-13] MED LIST: AMLO-258 PO; CHOL200013 PO; FISH1CAP27 PO; HYALURONIC ACID PO; HYDR25TA PO; LOVA40TA2 PO; METF-444 PO; OLME20TA68 PO
--- NOTE | 2024-06-13 12:26 | HMCIMG ---
CT CORONARY CALCIFICATION SCORING: Anatomic images were reviewed. The calcium score is being generated and reported separately. This report is for the visualized anatomy only. Visualized portions of the lungs are clear. Hilar and mediastinal structures appear normal. Osseous structures are unremarkable. Impression: 1. Negative noncardiac anatomic findings. 2. The calcium score is 471.1 consistent with a significant degree of calcified plaque. This is 90th percentile for a patient this age. CT was performed with one or more following dose reduction techniques: automated exposure control, adjustment of the mA and kv according to patient's size, or use of a iterative reconstruction technique.
== END | disposition home or self-care (01) ==
LOC: RAH 09:28
PROVIDERS: ATTEND Internal Medicine
DX: Z13.6 Encounter for screening for cardiovascular disorders (principal)
CPT/HCPCS: 75571